=== PATIENT | female | born 2000 | race Two or more races ===

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

== ENCOUNTER 2018-01-27 10:11 | Inpatient (IN) | payer OTHER ==
[~2018-01-27] VITALS: Ht 172.7 cm; Wt 88.9 kg
[2018-01-27] MEDS ORDERED: ACETAMINOPHEN 500 MG TABLET PO ONE (11:30)
[2018-01-27] MEDS ORDERED: KETOROLAC 30 MG/1 ML IVPush ONE (11:30)
[2018-01-27] MEDS ORDERED: SODIUM CHLORIDE FLUSH 10ML SYR IVF ONE (11:30)
[2018-01-27] MEDS ORDERED: SODIUM CHLORIDE 0.9% 1,000ML IVBOLUS ONE (11:30)
[2018-01-27] MEDS ORDERED: KETOROLAC 30 MG/1 ML ONE (11:38)
[2018-01-27] MEDS ORDERED: ACETAMINOPHEN 500 MG TABLET ONE (11:38)
[2018-01-27 11:44] LABS: MEAN CORPUSCULAR HEMOGLOBIN 29.5 pg (27.0-34.8); MEAN CORPUSCULAR VOLUME 89.4 fL (80-100); MEAN PLATELET VOLUME 8.6 fL (7.4-10.4); PLATELET COUNT 174 x10^3/uL (130-400); RED BLOOD COUNT 4.63 x10^6/uL (3.82-5.3); RED CELL DISTRIBUTION WIDTH 15.1 % (9.6-15.2)
[2018-01-27 11:54] LABS: ALANINE AMINOTRANSFERASE 18 U/L (12-78); ALBUMIN 3.6 g/dL (3.4-5.0); ANION GAP 8 mmol/L (5-15); CALCIUM 8.5 mg/dL (8.5-10.1); CHLORIDE 105 mmol/L (98-107); CREATININE 0.84 mg/dL (0.55-1.02)
[2018-01-27 11:56] LABS: ALKALINE PHOSPHATASE 67 U/L (45-117); BILIRUBIN,TOTAL 0.7 mg/dL (0.2-1.0); TOTAL PROTEIN 7.8 g/dL (6.4-8.2)
[2018-01-27 11:59] LABS: HCG UR SG 1.015 (1.003-1.030)
[2018-01-27 12:00] LABS: MICROSCOPIC AUTO
[2018-01-27 12:02] LABS: CULTURE INDICATED? YES
[2018-01-27 12:05] LABS: BASOPHILS % (AUTO) 0 % (0-1); EOSINOPHILS # (AUTO) 0.01 x10^3/uL (0-0.8); EOSINOPHILS % (AUTO) 0 % (1-7); LYMPHOCYTES # (AUTO) 0.75 x10^3/uL (1-6.1); LYMPHOCYTES % (AUTO) 4 % (22-44); MD SCAN; MONOCYTES # (AUTO) 1.45 x10^3/uL (0-1.4); MONOCYTES % (AUTO) 8 % (2-9); NEUTROPHILS # (AUTO) 16.01 x10^3/uL (1.8-8.0); NEUTROPHILS % (AUTO) 88 % (42-75)
[2018-01-27] MEDS ORDERED: CEFTRIAXONE PMX 2GM/50ML 50 ML ONE (12:29)
[2018-01-27] MEDS ORDERED: CEFTRIAXONE PMX 2GM/50ML 50 ML IV SCH (12:30)
[2018-01-27] MEDS ORDERED: SODIUM CHLORIDE 0.9% 1,000 ML IV SCH (13:30)
[2018-01-27] MEDS ORDERED: POTASSIUM CHLORIDE 20 MEQ TAB.ER.PRT PO ONE (13:30)
[2018-01-27] MEDS ORDERED: ENALAPRILAT 1.25 MG/ML, 2ML IVPush PRN (13:30)
[2018-01-27 13:37] LABS: INTERNATIONAL NORMALIZED RATIO 1.13 (0.93-1.1); PROTHROMBIN TIME 11.9 Seconds (9.6-11.5)
[2018-01-27] MEDS ORDERED: OMNIPAQUE 350 MG/ML, 100ML BOTTLE ONE (13:42)
[2018-01-27] MEDS ORDERED: POTASSIUM CHLORIDE 20 MEQ TAB.ER.PRT ONE (14:04)
[2018-01-27] MEDS ORDERED: LIDOCAINE-MPF 1%, 5ML ONE (14:24)
[2018-01-27] MEDS: BUTALB/APAP/CAFFEINE 50MG/325MG/40MG PO PRN ×2 (14:51→22:46)
[2018-01-27] MEDS: SODIUM CHLORIDE 0.9% 1,000 ML IV SCH ×3 (14:51→19:42)
[2018-01-27 15:02] VITALS: BP 127/83
[2018-01-27 16:41] LABS: GLUCOSE, CSF 56 mg/dL (40-80); TOTAL PROTEIN,CSF 21 mg/dL (15-45)
[2018-01-27 19:18] VITALS: BP 105/68
[2018-01-28 03:25] VITALS: BP 110/70
[2018-01-28] MEDS: SODIUM CHLORIDE 0.9% 1,000 ML IV SCH ×3 (03:33→23:00)
[2018-01-28 05:07] LABS: BASOPHILS # (AUTO) 0.02 x10^3/uL (0-0.3); BASOPHILS % (AUTO) 0 % (0-1); EOSINOPHILS # (AUTO) 0.02 x10^3/uL (0-0.8); EOSINOPHILS % (AUTO) 0 % (1-7); LYMPHOCYTES # (AUTO) 0.76 x10^3/uL (1-6.1); LYMPHOCYTES % (AUTO) 6 % (22-44); MD NO; MEAN CORPUSCULAR HEMOGLOBIN 30.4 pg (27.0-34.8); MEAN CORPUSCULAR HGB CONC 33.8 g/dL (32.4-35.8); MEAN PLATELET VOLUME 8.4 fL (7.4-10.4); MONOCYTES # (AUTO) 1.43 x10^3/uL (0-1.4); MONOCYTES % (AUTO) 12 % (2-9); NEUTROPHILS # (AUTO) 10.16 x10^3/uL (1.8-8.0); NEUTROPHILS % (AUTO) 82 % (42-75); PLATELET COUNT 164 x10^3/uL (130-400)
[2018-01-28 05:11] LABS: CHLORIDE 110 mmol/L (98-107)
[2018-01-28 05:20] LABS: ALANINE AMINOTRANSFERASE 15 U/L (12-78); ALBUMIN 2.8 g/dL (3.4-5.0); ALKALINE PHOSPHATASE 60 U/L (45-117); ANION GAP 9 mmol/L (5-15); BILIRUBIN,TOTAL 0.4 mg/dL (0.2-1.0); CREATININE 0.66 mg/dL (0.55-1.02); TOTAL PROTEIN 6.3 g/dL (6.4-8.2)
[2018-01-28] MEDS: ACETAMINOPHEN 325 MG TABLET PO PRN ×3 (07:28→18:05)
[2018-01-28] MEDS: ONDANSETRON 2MG/ML, 2ML IVPush PRN ×2 (07:34→18:09)
[2018-01-28 07:37] VITALS: BP 119/67
[2018-01-28 08:39] LABS: RAPID INFLUENZA A Negative (Negative); RAPID INFLUENZA B Negative (Negative)
[2018-01-28] MEDS: CEFTRIAXONE PMX 2GM/50ML 50 ML IV SCH (13:02)
[2018-01-28 14:00] VITALS: BP 119/76
[2018-01-28 19:37] VITALS: BP 110/69
[2018-01-28 23:52] LABS: TROPONIN I < 0.015 ng/mL (0.000-0.045)
[2018-01-29] MEDS: morphine SULFATE 10 MG/ML, 1ML IVPush PRN ×3 (00:56→18:14)
[2018-01-29] MEDS: ACETAMINOPHEN 325 MG TABLET PO PRN ×2 (00:56→10:21)
[2018-01-29] MEDS: ONDANSETRON 2MG/ML, 2ML IVPush PRN (01:01)
[2018-01-29 01:56] VITALS: BP 106/74
[2018-01-29 07:47] VITALS: BP 125/82
[2018-01-29] MEDS: SODIUM CHLORIDE 0.9% 1,000 ML IV SCH ×2 (08:05→18:14)
[2018-01-29] MEDS: IBUPROFEN 600 MG TABLET PO PRN ×2 (12:45→20:26)
[2018-01-29] MEDS: CEFTRIAXONE PMX 2GM/50ML 50 ML IV SCH (12:47)
[2018-01-29 14:42] VITALS: BP 97/64
[2018-01-29 20:22] VITALS: BP 120/83
[2018-01-30 00:28] VITALS: BP 96/62
[2018-01-30] MEDS: morphine SULFATE 10 MG/ML, 1ML IVPush PRN (05:27)
[2018-01-30] MEDS: ONDANSETRON 2MG/ML, 2ML IVPush PRN ×2 (05:32→15:27)
[2018-01-30] MEDS: SODIUM CHLORIDE 0.9% 1,000 ML IV SCH ×2 (05:33→21:45)
[2018-01-30 07:48] VITALS: BP 98/64
[2018-01-30] MEDS: IBUPROFEN 600 MG TABLET PO PRN (09:56)
[2018-01-30] MEDS: BUTALB/APAP/CAFFEINE 50MG/325MG/40MG PO PRN (09:56)
[2018-01-30 13:16] VITALS: BP 100/68
[2018-01-30] MEDS: CEFTRIAXONE PMX 2GM/50ML 50 ML IV SCH (13:23)
[2018-01-30 20:15] VITALS: BP 107/70
[2018-01-31 01:41] VITALS: BP 98/64
[2018-01-31 07:06] VITALS: BP 117/77
[2018-01-31] MEDS: SODIUM CHLORIDE 0.9% 1,000 ML IV SCH (11:10)
[2018-01-31] MEDS: CEFTRIAXONE PMX 2GM/50ML 50 ML IV SCH (11:10)
[2018-01-31 12:57] VITALS: BP 107/76
[2018-01-31] MEDS: BUTALB/APAP/CAFFEINE 50MG/325MG/40MG PO PRN (13:58)
[2018-01-31] MEDS ORDERED: SULF1TAB24 PO (14:16)
== END 2018-01-31 16:25 | disposition home or self-care (01) | DRG 872 ==
LOC: ED 11:38 → EDIP 12:29 → 3NE 14:31 → DCLOUNGE 01-31 16:05
PROVIDERS: ADMIT Internal Medicine; ATTEND Family Medicine
PROC: 0T9B70Z Drainage of Bladder with Drainage Device, Via Natural or Artificial Opening (ICD-10-PCS; principal; 2018-01-27)
PROC: 009U3ZX Drainage of Spinal Canal, Percutaneous Approach, Diagnostic (ICD-10-PCS; 2018-01-27)
PROC: B01B1ZZ Fluoroscopy of Spinal Cord using Low Osmolar Contrast (ICD-10-PCS; 2018-01-27)
DX: A41.9 Sepsis, unspecified organism (principal); N10 Acute pyelonephritis; B96.20 Unspecified Escherichia coli [E. coli] as the cause of diseases classified elsewhere; E87.6 Hypokalemia; F41.1 Generalized anxiety disorder
CPT/HCPCS: 36415; 62270; 70450; 74178; 80053; 81001; 81025; 82945; 83605; 84157; 84484; 85025; 85610; 85730; 87040; 87070; 87077; 87086; 87186; 87205; 87252; 87400; 89051; 93005; 96361; 96374; 96375; 99285; G0378; J0696; J1885; J2405; Q9967; J2270; J7030

== ENCOUNTER 2018-01-31 20:28 | Emergency (ER) | payer SELFPAY ==
[~2018-01-31] VITALS: Ht 172.7 cm; Wt 85.0 kg
[~2018-01-31 20:28] MED LIST: SULF1TAB24 PO
[2018-01-31] MEDS ORDERED: KETOROLAC 30 MG/1 ML ONE (21:11)
[2018-01-31] MEDS ORDERED: ONDANSETRON 2MG/ML, 2ML ONE (21:11)
[2018-01-31 21:25] LABS: BASOPHILS # (AUTO) 0.02 x10^3/uL (0-0.3); BASOPHILS % (AUTO) 1 % (0-1); EOSINOPHILS # (AUTO) 0.03 x10^3/uL (0-0.8); EOSINOPHILS % (AUTO) 1 % (1-7); LYMPHOCYTES # (AUTO) 1.58 x10^3/uL (1-6.1); LYMPHOCYTES % (AUTO) 30 % (22-44); MD NO; MEAN CORPUSCULAR HEMOGLOBIN 29.3 pg (27.0-34.8); MEAN CORPUSCULAR HGB CONC 33.2 g/dL (32.4-35.8); MEAN CORPUSCULAR VOLUME 88.4 fL (80-100); MONOCYTES # (AUTO) 0.77 x10^3/uL (0-1.4); MONOCYTES % (AUTO) 15 % (2-9); NEUTROPHILS # (AUTO) 2.93 x10^3/uL (1.8-8.0); NEUTROPHILS % (AUTO) 55 % (42-75); PLATELET COUNT 260 x10^3/uL (130-400); RED BLOOD COUNT 4.04 x10^6/uL (3.82-5.3); RED CELL DISTRIBUTION WIDTH 14.4 % (9.6-15.2)
[2018-01-31] MEDS ORDERED: ONDANSETRON 2MG/ML, 2ML IVPush ONE (21:30)
[2018-01-31] MEDS ORDERED: SODIUM CHLORIDE 0.9% 1,000ML IVBOLUS ONE (21:30)
[2018-01-31] MEDS ORDERED: KETOROLAC 30 MG/1 ML IVPush ONE (21:30)
[2018-01-31 21:32] LABS: ALANINE AMINOTRANSFERASE 27 U/L (12-78); ALBUMIN 2.9 g/dL (3.4-5.0); ANION GAP 11 mmol/L (5-15); CALCIUM 8.7 mg/dL (8.5-10.1); CHLORIDE 109 mmol/L (98-107); CREATININE 0.59 mg/dL (0.55-1.02)
[2018-01-31 21:34] LABS: ALKALINE PHOSPHATASE 55 U/L (45-117); BILIRUBIN,TOTAL 0.2 mg/dL (0.2-1.0); TOTAL PROTEIN 7.4 g/dL (6.4-8.2)
[2018-01-31 22:15] LABS: HCG UR SG 1.014 (1.003-1.030)
[2018-01-31 22:23] LABS: CULTURE INDICATED? YES; MICROSCOPIC INDICATED
[2018-01-31] MEDS ORDERED: SULFAMETH./TRIMETHOPRIM DS 800MG/160MG TABLET ONE (22:47)
[2018-01-31] MEDS ORDERED: SULFAMETH./TRIMETHOPRIM DS 800MG/160MG TABLET PO ONE (23:00)
[2018-01-31 23:30] VITALS: BP 103/56
== END 2018-01-31 23:41 | disposition home or self-care (01) ==
LOC: ED 21:11
DX: G44.219 Episodic tension-type headache, not intractable (principal); N10 Acute pyelonephritis; E86.0 Dehydration; R11.2 Nausea with vomiting, unspecified
CPT/HCPCS: 36415; 76770; 80053; 81001; 81025; 83605; 85025; 87086; 96361; 96374; 96375; 99284; J1885; J2405; J7030

== ENCOUNTER 2018-07-19 13:44 | Emergency (ER) | payer MEDICAID ==
[~2018-07-19] VITALS: Ht 172.7 cm; Wt 87.9 kg
--- NOTE | 2018-07-19 14:09 | NUR ---
PATIENT PRESENTS TO ED TODAY FOR VOMITING AND EPISTAXIS THIS AM, EPISTAXIS LASTED 30 MIN BUT STOPPED AT THIS TIME, ALSO C/O MID/LOWER BACK PAIN, PATIENT REPORTS MULTIPLE EPISTAXIS PAST 2 WEEKS, ADMITTED LAST NOV FOR KIDNEY INFECTION, NEVER WENT FOR FOLLOW UP PER PATIENT. PATIENT AMB TO BATHROOM WITH STEADY GAIT, BACK TO BED. NAD NOTED. AWAITING MD ORDERS, CALL LIGHT WITHIN REACH.
[2018-07-19 14:53] LABS: BASOPHILS # (AUTO) 0.03 x10^3/uL (0-0.3); BASOPHILS % (AUTO) 1 % (0-1); EOSINOPHILS # (AUTO) 0.04 x10^3/uL (0-0.8); EOSINOPHILS % (AUTO) 1 % (1-7); LYMPHOCYTES # (AUTO) 1.35 x10^3/uL (1-6.1); LYMPHOCYTES % (AUTO) 22 % (22-44); MD NO; MEAN CORPUSCULAR HEMOGLOBIN 30.1 pg (27.0-34.8); MEAN CORPUSCULAR HGB CONC 32.7 g/dL (32.4-35.8); MEAN CORPUSCULAR VOLUME 92.2 fL (80-100); MEAN PLATELET VOLUME 8.2 fL (7.4-10.4); MONOCYTES # (AUTO) 0.44 x10^3/uL (0-1.4); MONOCYTES % (AUTO) 7 % (2-9); NEUTROPHILS # (AUTO) 4.39 x10^3/uL (1.8-8.0); NEUTROPHILS % (AUTO) 70 % (42-75); PLATELET COUNT 260 x10^3/uL (130-400); RED BLOOD COUNT 4.57 x10^6/uL (3.82-5.3); RED CELL DISTRIBUTION WIDTH 15.5 % (9.6-15.2)
[2018-07-19 14:58] LABS: HCG UR SG 1.031 (1.003-1.030); MICROSCOPIC NOT IND
[2018-07-19 15:02] LABS: CULTURE INDICATED? NO
[2018-07-19 15:05] VITALS: BP 134/68
--- NOTE | 2018-07-19 15:53 | NUR ---
Patient/Caregiver given discharge instructions and they have confirmed that they understand the instructions. Patient ambulatory with steady gait.
== END 2018-07-19 15:56 | disposition home or self-care (01) ==
LOC: ED 15:00
DX: R10.9 Unspecified abdominal pain (principal)
CPT/HCPCS: 36415; 81003; 81025; 85025; 99283

== ENCOUNTER 2018-09-30 19:58 | Emergency (ER) | payer MEDICAID ==
[~2018-09-30] VITALS: Ht 172.7 cm; Wt 90.9 kg
[2018-09-30 20:05] VITALS: BP 125/74
== END 2018-09-30 20:48 | disposition home or self-care (01) ==
LOC: ED 20:47
DX: L05.01 Pilonidal cyst with abscess (principal); F41.1 Generalized anxiety disorder
CPT/HCPCS: 10080; 99284

== ENCOUNTER 2020-06-15 15:10 | Emergency (ER) | payer OTHER ==
[~2020-06-15] VITALS: Ht 170.2 cm; Wt 95.2 kg
--- NOTE | 2020-06-15 15:46 | NUR ---
pt w/ c/o "on sunday I fainted for about two min while I was cooking and since then I haven't felt right and I have had a SANCHEZ since then" .no hx of syncope, cardiac hx, denies hitting head, denies dizziness. pt attached to monitors, vss, denise.
[2020-06-15 16:27] LABS: ALBUMIN 3.7 g/dL (3.4-5.0); CALCIUM 8.9 mg/dL (8.5-10.1)
[2020-06-15 16:29] LABS: BASOPHILS % (AUTO) 1 % (0-1); EOSINOPHILS % (AUTO) 1 % (1-7); LYMPHOCYTES % (AUTO) 32 % (22-44); MEAN CORPUSCULAR HEMOGLOBIN 30.8 pg (27.0-34.8); MEAN CORPUSCULAR HGB CONC 32.7 g/dL (32.4-35.8); MEAN PLATELET VOLUME 8.4 fL (7.4-10.4); MONOCYTES % (AUTO) 8 % (2-9); NEUTROPHILS % (AUTO) 59 % (42-75); PLATELET COUNT 252 x10^3/uL (130-400); RED BLOOD COUNT 4.39 x10^6/uL (3.82-5.3); RED CELL DISTRIBUTION WIDTH 15.1 % (9.6-15.2)
[2020-06-15 16:30] LABS: MD NO
[2020-06-15 16:31] LABS: TROPONIN I < 0.015 ng/mL (0.000-0.045)
[2020-06-15 16:36] LABS: ANION GAP 6 mmol/L (5-15); CHLORIDE 107 mmol/L (98-107)
--- NOTE | 2020-06-15 16:36 | NUR ---
pt resting in bed. vsestuardo. deinse.
[2020-06-15 17:37] VITALS: BP 117/63
--- NOTE | 2020-06-15 17:53 | NUR ---
Patient/Caregiver given discharge instructions and they have confirmed that they understand the instructions. Patient ambulatory with steady gait.
== END 2020-06-15 17:55 | disposition home or self-care (01) ==
LOC: ED 17:45
DX: R55 Syncope and collapse (principal); R42 Dizziness and giddiness; R07.89 Other chest pain; R51.9 Headache, unspecified
CPT/HCPCS: 36415; 70450; 71045; 80048; 82040; 83880; 84484; 85025; 85379; 93005; 99285

== ENCOUNTER 2020-11-17 09:19 | Emergency (ER) | payer SELFPAY ==
[~2020-11-17] VITALS: Ht 172.7 cm; Wt 93.0 kg
[~2020-11-17 09:19] MED LIST changes: +SULF-23 PO; -SULF1TAB24 PO
[2020-11-17 09:20] VITALS: BP 137/79
--- NOTE | 2020-11-17 09:40 | NUR ---
PT PRESENTS WITH C/O NOSEBLEED ON AND OFF SINCE 0400 THIS MORNING, REPORTS FREQUENT NOSEBLEEDS X1 MONTH.
--- NOTE | 2020-11-17 09:42 | NUR ---
PT ALSO REPORTS COVID+ YESTERDAY, SYMPTOMS X5 DAYS, +COUGH, FEVER, CHILLS, BODY ACHES, SORE THROAT, NASEA, AND SANCHEZ.
[2020-11-17] MEDS ORDERED: SILVER NITRATE STICK TP ONE (10:08)
[2020-11-17] MEDS ORDERED: PHENYLEPHRINE NASAL 1%, 15ML SPRAY ONE (10:09)
--- NOTE | 2020-11-17 10:09 | NUR ---
DR. DEL ROSARIO AT BEDSIDE.
== END 2020-11-17 10:49 | disposition home or self-care (01) ==
LOC: ED 09:28
DX: U07.1 COVID-19 (principal); R04.0 Epistaxis; J06.9 Acute upper respiratory infection, unspecified
CPT/HCPCS: 99282